=== PATIENT | male | born 1970 | race Two or more races ===

== ENCOUNTER 2018-12-03 05:00 | Day surgery (SDC) | payer BC ==
[~2018-12-03 05:00] MED LIST: NORVIR; REYATAZ; VIREAD; [UNRECOGNIZED DRUG - OTHER]; [UNRECOGNIZED DRUG - OTHER]
== END 2018-12-03 10:55 | disposition home or self-care (01) ==
LOC: AMB-ENDOS 05:00
DX: K57.30 Diverticulosis of large intestine without perforation or abscess without bleeding (principal); K62.89 Other specified diseases of anus and rectum

== ENCOUNTER 2019-05-14 01:10 | Emergency (ER) | payer BC ==
[~2019-05-14] VITALS: Ht 172.7 cm; Wt 81.2 kg
[2019-05-14] MEDS ORDERED: ODEFSEY TABLET1 EACH (01:33)
[2019-05-14] MEDS ORDERED: CIPRO500 MG (01:34)
== END 2019-05-14 09:19 | disposition home or self-care (01) ==
LOC: ER 01:10
DX: R07.89 Other chest pain (principal); R20.8 Other disturbances of skin sensation